=== PATIENT | male | born 1930 | race Caucasian/White ===

== ENCOUNTER 2018-11-11 06:56 | Day surgery (SDC) | payer MEDICARE, OTHER ==
[~2018-11-11 06:56] MED LIST: SOD CHLORIDE 0.9% 1,000 ML IV
[2018-11-11] MEDS ORDERED: BUPIVACAINE 0.5%/EPI (SDV) 30 ML INJ (08:16)
[2018-11-11] MEDS ORDERED: HYDROmorphONE 1 MG/5 ML IV SYRINGE IV ×3 (09:00)
[2018-11-11] MEDS ORDERED: LABETALOL HCL 20MG INJ IV (09:00)
[2018-11-11] MEDS ORDERED: MEPERIDINE 25 MG INJ IV (09:00)
[2018-11-11] MEDS ORDERED: hydrALAzine 20 MG INJ IV (09:00)
[2018-11-11] MEDS ORDERED: DIPHENHYDRAMINE 50 MG INJ IV (09:00)
[2018-11-11] MEDS ORDERED: ONDANSETRON 4 MG INJ IV (09:00)
[2018-11-11] MEDS ORDERED: OXYCODONE/ACETAMINOPHEN (5/325) TAB PO (09:00)
[2018-11-11] MEDS ORDERED: EPINEPHrine 0.1 MG/ML SYG (09:14)
[2018-11-11] MEDS ORDERED: CEFAZOLIN 1 GM INJ (09:18)
[2018-11-11] MEDS ORDERED: ETOMIDATE 20 MG INJ (09:18)
[2018-11-11] MEDS ORDERED: FENTAnyl 50 MCG/ML VIAL (09:18)
[2018-11-11] MEDS ORDERED: METOCLOPRAMIDE 10 MG INJ (09:19)
[2018-11-11] MEDS ORDERED: ONDANSETRON 4 MG INJ (09:19)
[2018-11-11] MEDS: CEFAZOLIN 1 GM/50 ML (PMX) 50 ML IVPB (09:20)
[2018-11-11] MEDS: LIDOCAINE 1%/EPI (1:100,000) (MDV) 20 ML (09:49)
[2018-11-11] MEDS: LIDOCAINE 1%/EPI 30 ML INJ (09:49)
[2018-11-11] MEDS ORDERED: NEOMYC/POLYMYX/BACIT 3.5GM OPH OINT (09:56)
== END 2018-11-11 11:54 | disposition home or self-care (01) ==
LOC: SDS 06:56
DX: C44.529 Squamous cell carcinoma of skin of other part of trunk (principal)
CPT/HCPCS: 14000; 71045; 88305